=== PATIENT | male | born 1960 | race Caucasian/White ===

== ENCOUNTER 2016-11-23 10:18 | Observation (INO) | payer MEDICARE ==
[~2016-11-23] VITALS: Ht 193 cm; Wt 100.5 kg
--- NOTE | ~2016-11-23 | DS ---
PATIENT:SHELBY AYALA :58 MEDICAL RECORD: [id number] DISCHARGE SUMMARY ADMISSION DATE: 11/23/16 DISCHARGE DATE: DISCHARGE DIAGNOSES: 1. Unstable angina. 2. Coronary artery disease. 3. Percutaneous transluminal coronary angioplasty stent vein graft to the left anterior descending, diagonal and point lay ira left circumflex this admission. 4. Hypertension. 5. Hyperlipidemia. HOSPITAL COURSE: Mr. Ayala presents with unstable anginal symptomatology, found to have significant disease of the point lay ira left circumflex as well as the vein graft to the diagonal and underwent successful PTCA stent of above territories. He was discharged home with no change in his medications as he is already on aspirin and Effient will follow up with [facility] in 1 month. TRANSINT:[id number] Voice Confirmation ID: [id number] DOCUMENT ID: [id number] BETH BENSON MD CC: [id number] DICTATION DATE: 11/24/16929 MANAGER INTENSIVE CARE UNIT: 11/24/16 1147 ADM IN [facility] [address] [place] [address]
--- NOTE | ~2016-11-23 | HEMODYNAMI ---
PATIENT:SHELBY CARPIO MEDICAL RECORD: [id number] : 58 [facility] [id number] ADMISSION DATE: 11/23/16 Generatedon:11/23/201615:45 Patient name: SHELBY CARPIO Patient #: [id number] SSN: : 1960 Date of study: 11/23/2016 Page: Of Hemodynamic Procedure Report Patient Data Patient Demographics Procedure consent was obtained First Name: SHELBY Gender: Male Last Name: SHIRIN : 1960 [facility] Initial: R Age: 55 year(s) Patient #: [id number] Race: Unknown Additional ID: [id number] Contact details [address]: [address] [place] [address] ROAD State: [place] City: [place] Zip code: [address] Past Medical History Allergies: No known allergies Admission Admission Data Admission Date: 11/23/2016 Admission Time: 12:46 Room #: D2110 Lab Results Lab Result Date: 11/23/2016 Lab Result Time: 0:00 Biochemistry Name Units Result Min Max Creatinine mg/dl 1.1 --(--*-)-- 0.6 1.3 CBC Name Units Result Min Max Hemoglobin g/dl 15.6 --(--*-)-- 13.5 17.5 Procedure Procedure Types Cath Procedure Diagnostic Procedure LHC C w/Coronaries w/Grafts PCI Procedure SVG-BMS/LUIS MIGUEL Initial Miscellaneous Procedures Moderate Sedation up to 15 minutes Procedure Description Procedure Date Procedure Date: 11/23/2016 Procedure Start Time: 15:29 Procedure End Time: 15:44 Procedure Staff Name Function Earl Lorenzo MD Performing Physician Navid Kasper RN Nurse Rik Abraham RN Magnesium Mill Operator Lorenza Ko RT Scrub Andres Izquierdo RT Scrub Mendy Roberts RT Monitor Procedure Data Cath Procedure Fluoroscopy Diagnostic fluoroscopy Total fluoroscopy Time: 3.7 time: 3.7 min min Diagnostic fluoroscopy Total fluoroscopy dose: 617 dose: 617 mGy mGy Contrast Material Contrast Material Type Amount (ml) Isovue 300 65 Entry Location Entry Primary Successful Side Size Upsize Upsize Entry Closure Succes sful Closure Location (Fr) 1 (Fr) 2 (Fr) Remarks Device Remarks Femoral Left 5 Fr 6 Fr Exoseal artery Short Estimated blood loss: 10 ml Diagnostic catheters Device Type Used For End Catheter Placement Cordis 5Fr Pigtail LV Angiography Catheter (MP) Cordis 5Fr JL 4.0 Left Coronary Catheter (MP) Angiography Cordis 5Fr 3DRC Catheter Internal mammary (MP) arteriography Cordis 5Fr 3DRC Catheter Right Coronary (MP) Angiography Diagnostic Infinity 5Fr SVG Angiography AR 2 MOD catheter Procedure Complications No complications Procedure Medications Medication Administration Route Dosage 0.9% NaCl I.V. 100 ml/hr Oxygen NC 2 l/min Heparin Flush Bag added to field 2 bags (1000units/500ml NS) Lidocaine 2% added to field 20 Versed I.V. 2 mg Fentanyl I.V. 100 mcg Fentanyl I.V. 50 mcg Fentanyl I.V. 50 mcg Versed I.V. 1 mg Hemodynamics Rest HGB: 15.6 (g/dl) Heart Rate: 72 (bpm) Snapshots Pre Cath Intra NCS Post Cath Vital Signs Time Heart Resp SPO2 etCO2 [id number] NIBP (mmHg) Rhythm Pain Sedation Rate (ipm) (%) (mmHg) (mmHg) Status Level (bpm) 15:19:33 67 11 98 0 0 138/86(119) NSR 0 (11) 10(A) , No pain 15:24:14 67 18 95 0 0 132/88(120) NSR 0 (11) 10(A) , No pain 15:28:56 90 19 96 0 0 135/89(114) NSR 0 (11) 10(A) , No pain 15:33:41 71 10 96 0 0 148/77(112) NSR 0 (11) 10(A) , No pain 15:38:17 86 18 94 0 0 125/89(119) NSR 0 (11) 9(A) , No pain 15:42:58 77 15 91 0 0 136/80(100) NSR 0 (11) 10(A) , No pain Medications Time Medication Route Dose Verified Delivered Reason Notes Effe ctiveness by by 15:13:32 0.9% NaCl I.V. 100 Navid Jolly Per ml/hr Majo Abraham RN physician RN 15:13:51 Oxygen NC 2 Navid Navid Per l/min Majo Kasper physician RN RN 15:14:05 Heparin Flush added 2 Navid Navid used for Bag to bags Lorigan Lorigan procedure (1000units/500ml field RN RN NS) 15:14:18 Lidocaine 2% added 20ml Navid Navid for local to vial Lorigan Lorigan anesthetic field RN RN 15:28:08 Versed I.V. 2 mg Navid Navid for Lorigan Lorigan sedation RN RN 15:28:28 Fentanyl I.V. 100 Navid Navid for mcg Lorigan Lorigan sedation RN RN 15:30:48 Fentanyl I.V. 50 Navid Navid for mcg Lorigan Lorigan sedation RN RN 15:35:11 Fentanyl I.V. 50 Navid Navid for mcg Lorigan Lorigan sedation RN RN 15:39:04 Versed I.V. 1 mg Navid Navid for Lorigan Lorigan sedation RN grain unloader Log Time Note 14:55:27 Time tracking: Regular hours 14:55:30 Plan of Care:Hemodynamics will remain stable., Cardiac rhythm will remain stable., Comfort level will be maintained., Respiratory function will remain adequate., Patient/ family verbilizes understanding of procedure., Procedure tolerated without complication., Recovers from procedure without complications.. 14:56:26 Procedure type changed to Cath procedure, Diagnostic procedure, LHC, LH C w/Coronaries w/Grafts, PCI procedure, SVG-BMS/LUIS MIGUEL Initial, Miscellaneous Procedures, Moderate Sedation up to 15 minutes 14:56:54 Lab Result : Creatinine 1.1 mg/dl 14:56:54 Lab Result : Hemoglobin 15.6 g/dl 15:00:13 Rik Abraham RN sent for patient. Start room use. 15:09:39 Patient received from PCU to CCL 1 Alert and oriented. Tansferred to table in Supine position. 15:09:40 Warm blankets applied, and kiko hugger turned on for patient comfort. 15:09:40 Correct patient and procedure confirmed by team. 15:09:41 Signed procedure consent form obtained from patient. 15:09:42 ECG and BP/O2 sat monitors applied to patient. 15:13:32 0.9% NaCl 100 ml/hr I.V. was administered by Rik Abraham RN; Per physician; 15:13:51 Oxygen 2 l/min NC was administered by Navid Kasper RN; Per physician ; 15:14:05 Heparin Flush Bag (1000units/500ml NS) 2 bags added to field was administered by Navid Kasper RN; used for procedure; 15:14:18 Lidocaine 2% 20ml vial added to field was administered by Navid Kasper RN; for local anesthetic; 15:18:40 Vital chart was started 15:18:42 Rhythm: sinus rhythm 15:18:44 Full Disclosure recording started 15:18:45 - 15:18:51 H&P Date Dictated: 11/23/2016 Within 30 days and on chart.. 15:18:52 Pre-procedure instructions explained to patient. 15:18:53 Pre-op teaching completed and patient verbalized understanding. 15:18:55 Family in patients room. 15:18:58 Patient NPO since Midnight. 15:19:03 Patient allergic to No known allergies 15:19:04 Is the patient allergic to Iodine/contrast media? No. 15:19:06 Is patient on blood thinner?Yes 15:19:11 ACC The patient was administered the following blood thiners within the last 24 hours: ACCPlavix, ACCLovenox 15:19:14 Patient diabetic? No. 15:19:17 Previous problem with sedation/anesthesia? No ? 15:19:18 Snore? Yes 15:19:19 Sleep apnea? No 15:19:20 Deviated septum? No 15:19:21 Opens mouth fully? Yes 15:19:22 Sticks out tongue? Yes 15:19:24 Airway obstruction? No ? 15:19:26 Dentures? No ? 15:19:31 Pre procedure: right dorsailis pedis pulse 2+ Normal; easily identifiable; not easily obliterated 15:19:33 Patient pain scale 0/10 ?. 15:19:41 IV patent on arrival in right hand with 0.9% NaCl at [facility]. 15:19:45 Lab results completed and on chart. 15:19:51 Right groin area was prepped with chlora-prep and draped in sterile fashion 15:19:52 Alarms reviewed by R. N. 15:19:52 Sharps counted by scrub and verified by R.N. 15:19:56 Use device set Femoral Dx 15:19:57 Acist Syringe opened to sterile field. 15:19:57 Bag Decanter opened to sterile field. 15:19:57 Medline Cath Pack opened to sterile field. 15:19:58 Terumo 5Fr Barneveld Sheath opened to sterile field. 15:19:58 St Reji 260cm J .035 wire opened to sterile field. 15:20:00 Acist Hand Control opened to sterile field. 15:20:00 Acist Manifold opened to sterile field. 15:20:00 Diagnostic Infinity 5Fr Multipack catheter opened to sterile field. 15:20:01 Tegaderm 4 x 4 opened to sterile field. 15:24:46 Zero performed for pressure channel P1 15:24:54 Baseline sample Acquired. 15:24:57 Physician paged 15:27:12 Final Timeout: patient, procedure, and site verified with staff and physician. All members of the team are in agreement. 15:27:14 Right groin site verified by team. 15:27:16 Physical assessment completed. ASA score P 2 - A patient with mild systemic disease as per Earl Lorenzo MD. 15::19 Sedation plan: IV Moderate Sedation Versed, Fentanyl 15:28:08 Versed 2 mg I.V. was administered by Navid Kasper RN; for sedation; 15::28 Fentanyl 100 mcg I.V. was administered by Navid Kasper RN; for sedation; 15:28:55 Procedure started. 15:29:33 Local anesthetic to right femoral artery with Lidocaine 2% by Earl Lorenzo MD.INITIAL ACCESS ONLY 15:30:16 A 5 Fr sheath was inserted into the Left Femoral artery 15:30:48 Fentanyl 50 mcg I.V. was administered by Navid Kasper RN; for sedation; 15:31:31 A Cordis 5Fr Pigtail Catheter (MP) was advanced over the wire and used for LV Angiography. 15:31:33 LV gram done using WARD 15:31:37 EF : 50 % 15:31:40 Injector settings: Ml/sec: 10, Volume: 20, 15:31:42 Catheter removed. 15:31:46 A Cordis 5Fr JL 4.0 Catheter (MP) was advanced over the wire and used for Left Coronary Angiography. 15:32:42 Catheter removed. 15:33:22 A Cordis 5Fr 3DRC Catheter (MP) was advanced over the wire and used for Internal mammary arteriography.To LAD 15:34:05 A Cordis 5Fr 3DRC Catheter (MP) was advanced over the wire and used for Right Coronary Angiography. 15:34:25 Catheter removed. 15:35:08 A Diagnostic Infinity 5Fr AR 2 MOD catheter was advanced over the wire and used for SVG Angiography.To Diag 15:35:11 Fentanyl 50 mcg I.V. was administered by Navid Kasper RN; for sedation; 15:35:16 Sheath upsized to a 6 Fr Short. 15:35:50 Catheter removed. 15:35:56 Medtronic Launcher 6Fr AR 2.0 SH guide catheter opened to sterile field . 15:36:39 6 Fr AR 2.0 SH guide catheter was inserted over the wire 15:36:59 Rios Whisper J 300cm 0.014 guide wire opened to sterile field. 15:37:00 Terumo 6Fr Barneveld Sheath opened to sterile field. 15:37:40 Whisper wire advanced. 15:39:04 Versed 1 mg I.V. was administered by Navid Kasper RN; for sedation; 15:39:27 Inflation Number: 1 A Lowell OTW 3.5 x 15 stent was prepped and advanced across the Aorta Left -> 1st Diag. The stent was deployed at 21 MARGIE for 0:14 (min:sec). 15:40:04 Stent catheter was removed intact over wire. 15:40:04 Wire removed. 15:40:05 Guide catheter removed. 15:40:46 Sheath removed intact; hemostasis achieved with Exoseal to the Left Femoral artery. 15:40:48 Procedure ended.(Physican Out) 15:41:00 Cordis 6Fr Exoseal opened to sterile field. 15:41:05 Fluoroscopy time 03.70 minutes. 15:41:17 Fluoroscopy dose: 617 mGy 15:41:17 Flurop Dose total: 617 15:41:21 Contrast amount:Isovue 300 65ml. 15:41:22 Sharps counted by scrub and verified by R.N. 15:41:23 Insertion/operative site no bleeding no hematoma. 15:41:26 Post-op/insertion site Right Femoral artery dressed using a 4 x 4 and Tegaderm. 15:41:29 Post right femoral artery:stable, clean and dry 15:41:30 Post Procedure Pulses reassessed and unchanged 15:41:33 Post-procedure physical assessment completed. ASA score P 2 - A patient with mild systemic disease as per Earl Lorenzo MD. 15:41:35 Post procedure rhythm: unchanged. 15:41:37 Estimated blood loss: 10 ml 15:41:39 Post procedure instruction explained to patient.Patient verbalizes understanding. 15:41:39 Patient needs reinforcement of post procedure teaching. 15:41:45 Procedure Complication : No complications 15:41:47 See physician's report for complete and final results. 15:43:22 Procedure and supply charges have been captured, reviewed, submitted an d are correct. 15:44:44 Vital chart was stopped 15:44:47 Report given to PCU. 15:44:51 Patient transfered to PCU with Bed. 15:44:54 Procedure ended. 15:44:54 Full Disclosure recording stopped 15:45:02 End room use (Document Last) Intervention Summary Intervention Notes Time ActionType Lesion and Equipment Action# Pressure Duration Attributes Used 15:39:27 Place stent Aorta Left Lowell OTW 1 21 00:15 -> 1st Diag 3.5 x 15 stent Device Usage Item Name Manufacture Quantity Catalog Hospital Part Current Minimal Lot# / Number Charge Number Stock Stock Serial# Code Acist Acist 1 [id number] 832633 651766 20 Syringe Medical Systems Inc Bag Microtek 1 2002S 793376 89100 388857 5 Dec[employer]Aly[employer] Inc[employer] Medline Cardinal 1 [id number] 681442 00592 602981 5 Lost Property Heaven Terumo 5Fr Terumo 1 [id number] 609375 007698 538504 [address] Reji 1 435708 494971 723939 520665 30 260cm J .035 wire Acist Hand Acist 1 48677 536782 058138 811730 5 Jybe Systems Inc Acist Acist 1 07517 202404 891692 099297 5 [facility] Medical Systems Inc Diagnostic Cardinal 1 [id number] 456559 16794 294122 30 Infinity Health 5Fr Multipack catheter Tegaderm 4 3M 1 1626W 695985 231486 028745 5 x 4 Cordis 5Fr Cardinal 1 281335 5 Pigtail Health Catheter (MP) Cordis 5Fr Cardinal 1 929548 5 JL 4.0 Health Catheter (MP) Cordis 5Fr Cardinal 1 658985 5 3DRC Health Catheter (MP) Diagnostic Cardinal 1 [id number] 334187 850564 875843 20 Infinity Health 5Fr AR 2 MOD catheter Medtronic Medtronic 1 [id number] 937014 56314 685833 1 Launcher 6Fr AR 2.0 SH guide catheter Rios Rios 1 [id number] 801664 217497 185728 5 [facility] J Vascular 300cm 0.014 guide wire Terumo 6Fr Terumo 1 WFL084 426331 664450 769461 40 Barneveld Sheath [place] OTW Medtronic 1 [id number] 494652 2194051 896422 5 [id number] 3.5 x 15 stent Cordis 6Fr Cardinal 1 EX600 108187 023215 941786 10 [facility] Health Signature Audit [place] Stage Time Signature Unsigned Intra-Procedure 11/23/2016 Mendy 3:45:18 PM Counts RT(R) Signatures Monitor : Mendy Signature : Counts RT Date : Time : [facility] [address] [facility] [place] [address]
--- NOTE | ~2016-11-23 | OP ---
PATIENT NAME: SHELBY CARPIO MEDICAL RECORD: [id number] :58 LOCATION:D.M2 D.0 ADMISSION DATE:11/23/16 SURGEON: BETH BENSON MD DATE OF OPERATION: 11/24/2016 PROCEDURES: 1. PTCA stent left circumflex. 2. Selective coronary angiography. INDICATION: Angina and coronary artery disease. PROCEDURE IN DETAIL: After informed consent was obtained and after detailed explanation of risks, benefits as well as alternative to therapies, the patient elected to proceed with angiogram and angioplasty. The left femoral area was prepped and draped in normal sterile fashion. Left femoral artery was cannulated via modified Seldinger technique with placement of 6-Tajik sheath. All catheters exchanged through this sheath. FINDINGS: The left circumflex has 80% and 90% stenosis. This was addressed with a 2.5 x 26 and a 2.25 x 12 both Piero stents. Result was 0% residual stenosis. OVERALL IMPRESSION: Successful percutaneous transluminal coronary angioplasty stent of the left circumflex going from 90% initial stenosis to 0% residual stenosis. TRANSINT:[id number] Voice Confirmation ID: [id number] DOCUMENT ID: [id number] BETH BENSON MD CC: [id number] DICTATION DATE: 11/24/1631 STOCK ROLLER: 11/24/16 1104 ADM IN [facility] [address] [place] [address]
--- NOTE | ~2016-11-23 | HEMODYNAMI ---
PATIENT:SHELBY CARPIO MEDICAL RECORD: [id number] : 58 LOCATION:[address] [id number] ADMISSION DATE: 11/23/16 Generatedon:11/24/20169:34 Patient name: SHELBY CARPIO Patient #: [id number] SSN: : 1960 Date of study: 11/24/2016 Page: Of Hemodynamic Procedure Report Patient Data Patient Demographics Procedure consent was obtained First Name: SHELBY Gender: Male Last Name: SHIRIN : 1960 [facility] Initial: R Age: 55 year(s) Patient #: [id number] Race: Unknown Additional ID: [id number] Contact details [address]: [address] [place] [address] ROAD State: [place] City: [place] Zip code: [address] Past Medical History Allergies: No known allergies Admission Admission Data Admission Date: 11/23/2016 Admission Time: 12:46 Room #: D.2110 Lab Results Lab Result Date: 11/23/2016 Lab Result Time: 0:00 Biochemistry Name Units Result Min Max Creatinine mg/dl 1.1 --(--*-)-- 0.6 1.3 CBC Name Units Result Min Max Hemoglobin g/dl 15.6 --(--*-)-- 13.5 17.5 Procedure Procedure Types Cath Procedure PCI Procedure Coronary Stent Initial Miscellaneous Procedures Moderate Sedation up to 15 minutes Procedure Description Procedure Date Procedure Date: 11/24/2016 Procedure Start Time: 9:18 Procedure End Time: 9:31 Procedure Staff Name Function Earl Lorenzo MD Performing Physician Lorenza Ko RT Scrub Andres Izquierdo RT Scrub Navid Kasper RN Nurse Rik Abraham RN Is Project Manager Lalita De La Cruz RT Monitor Procedure Data Cath Procedure Fluoroscopy Diagnostic fluoroscopy Total fluoroscopy Time: 3.4 time: 3.4 min min Diagnostic fluoroscopy Total fluoroscopy dose: 544 dose: 544 mGy mGy Contrast Material Contrast Material Type Amount (ml) Isovue 300 51 Entry Location Entry Primary Successful Side Size Upsize Upsize Entry Closure Succes sful Closure Location (Fr) 1 (Fr) 2 (Fr) Remarks Device Remarks Femoral Left 6 Fr Exoseal artery Short Estimated blood loss: 10 ml Procedure Complications No complications Procedure Medications Medication Administration Route Dosage 0.9% NaCl I.V. 100 ml/hr Oxygen NC 2 l/min Heparin Flush Bag added to field 2 bags (1000units/500ml NS) Lidocaine 2% added to field 20 Versed I.V. 1 mg Fentanyl I.V. 50 mcg Heparin Bolus I.V. 4000 units Fentanyl I.V. 50 mcg Versed I.V. 1 mg Hemodynamics Rest HGB: 15.6 (g/dl) Heart Rate: 64 (bpm) Snapshots Pre Cath Intra NCS Post Cath Vital Signs Time Heart Resp SPO2 etCO2 [id number] NIBP (mmHg) Rhythm Pain Sedation Rate (ipm) (%) (mmHg) (mmHg) Status Level (bpm) 9:07:36 67 18 97 0 0 121/86(101) NSR 0 (11) 10(A) , No pain 9:12:16 69 18 93 0 0 123/80(102) NSR 0 (11) 10(A) , No pain 9:16:59 75 18 94 0 0 136/77(89) NSR 0 (11) 9(A) , No pain 9:21:42 77 11 95 0 0 114/76(92) NSR 0 (11) 9(A) , No pain 9:26:20 80 15 95 0 0 108/83(95) NSR 0 (11) 9(A) , No pain 9:30:59 76 12 95 0 0 123/80(106) NSR 0 (11) 9(A) , No pain Medications Time Medication Route Dose Verified Delivered Reason Notes Effectiveness by by 9:04:04 0.9% NaCl I.V. 100 Navid Navid Per physician ml/hr Majo Kasper RN RN 9:04:24 Oxygen NC 2 Navid Navid Per physician l/min Majo Kasper RN RN 9:04:58 Heparin Flush added 2 Navid Navid used for Bag to bags Majo Kasper procedure (1000units/500ml field GRAFF RN NS) 9:05:29 Lidocaine 2% added 20ml Navid Navid for local to vial Lorigan Lorigan anesthetic field RN RN 9:11:09 Versed I.V. 1 mg Navid Navid for sedation Majo Kasper RN RN 9:11:21 Fentanyl I.V. 50 Navid Navid for sedation mcg Majo Kasper RN RN 9:20:06 Heparin Bolus I.V. 4000 Navid Navid for units Majo Kasper anticoagulation RN RN 9:20:14 Fentanyl I.V. 50 Navid Navid for sedation mcg Majo Kasper RN RN 9:28:36 Versed I.V. 1 mg Navid Navid for sedation Majo Kasper RN executive creative director Log Time Note 8:56:52 Rik Abraham RN sent for patient. Start room use. 8:56:53 Time tracking: Regular hours 8:56:57 Plan of Care:Hemodynamics will remain stable., Cardiac rhythm will remain stable., Comfort level will be maintained., Respiratory function will remain adequate., Patient/ family verbilizes understanding of procedure., Procedure tolerated without complication., Recovers from procedure without complications.. 9:01:01 Patient received from Med II to CCL 1 Alert and oriented. Tansferred to table in Supine position. 9:01:08 Warm blankets applied, and kiko hugger turned on for patient comfort. 9:01:09 Correct patient and procedure confirmed by team. 9:01:12 Signed procedure consent form obtained from patient. 9:01:14 ECG and BP/O2 sat monitors applied to patient. 9:04:04 0.9% NaCl 100 ml/hr I.V. was administered by Navid aKsper RN; Per physician; 9:04:24 Oxygen 2 l/min NC was administered by Navid Kasper RN; Per physician; 9:04:58 Heparin Flush Bag (1000units/500ml NS) 2 bags added to field was administered by Navid Kasper RN; used for procedure; 9:05:29 Lidocaine 2% 20ml vial added to field was administered by Navid Kasper RN; for local anesthetic; 9:06:42 Vital chart was started 9:07:30 Baseline sample Acquired. 9:07:40 Rhythm: sinus rhythm 9:07:42 Full Disclosure recording started 9:07:50 H&P Date Dictated: 11/23/2016 Within 30 days and on chart.. 9:07:53 Pre-procedure instructions explained to patient. 9:07:55 Family in patients room. 9:07:59 Patient NPO since Midnight. 9:08:09 Patient allergic to No known allergies 9:08:13 Is the patient allergic to Iodine/contrast media? No. 9::21 Is patient on blood thinner?Yes 9::25 ACC The patient was administered the following blood thiners within the last 24 hours: ACCEffient 9:09:27 Patient diabetic? No. 9:09:32 Snore? No 9:09:33 Sleep apnea? No 9:09:38 Dentures? No ? 9:09:43 Patient pain scale 0/10 ?. 9:09:50 IV patent on arrival in right hand with 0.9% NaCl at [facility]. 9:10:04 Lab results completed and on chart. 9:10:09 Left groin area was prepped with chlora-prep and draped in sterile fashion 9:10:10 Alarms reviewed by R. N. 9:10:11 Sharps counted by scrub and verified by R.N. 9:10:13 Physician arrived 9::13 --------ALL STOP TIME OUT------ 9:10:14 Final Timeout: patient, procedure, and site verified with staff and physician. All members of the team are in agreement. 9:10:18 Left groin site verified by team. 9:10:25 Sedation plan: IV Moderate Sedation Versed, Fentanyl 9:11:09 Versed 1 mg I.V. was administered by Navid Kasper RN; for sedation; 9::21 Fentanyl 50 mcg I.V. was administered by Navid Kasper RN; for sedation; 9:13:00 Use device set Femoral PCI 9:13:03 Acist Syringe opened to sterile field. 9:13:04 Acist Hand Control opened to sterile field. 9:13:04 Bag Decanter opened to sterile field. 9:13:05 Medline Cath Pack opened to sterile field. 9:13:05 Terumo 6Fr [place]view Sheath opened to sterile field. 9:13:06 St Reji 260cm J .035 wire opened to sterile field. 9:13:06 Merit BasixCompak Inflation Kit opened to sterile field. 9:13:07 Acist Manifold opened to sterile field. 9:13:07 Tegaderm 4 x 4 opened to sterile field. 9:13:28 Rios Whisper J 300cm 0.014 guide wire opened to sterile field. 9::29 Cordis 6FR XBLAD 4.0 guide catheter opened to sterile field. 9:18:00 Procedure started. 9:18:04 Local anesthetic to left femerol artery with Lidocaine 2% by Earl Lorenzo MD.INITIAL ACCESS ONLY 9:19: A 6 Fr Short sheath was inserted into the Left Femoral artery 9:19:25 6 Fr XBLAD 4 guide catheter was inserted over the wire 9:: Whisper wire advanced. 9:20:06 Heparin Bolus 4000 units I.V. was administered by Navid Kasper RN; for anticoagulation; 9::14 Fentanyl 50 mcg I.V. was administered by Navid Kasper RN; for sedation; 9:22:47 Wire advanced across lesion. 9:23:49 Inflation Number: 1 A Piero OTW 2.5 x 26 stent was prepped and advanced across the Prox CX. The stent was deployed at 13 MARGIE for 0:10 (min:sec). 9:25:16 Stent catheter was removed intact over wire. 9::25 Inflation Number: 1 A Piero OTW 2.25 x 12 stent was prepped and advanced across the Mid CX. The stent was deployed at 15 MARGIE for 0:10 (min:sec). 9:27:16 Stent catheter was removed intact over wire. 9:27:18 Wire removed. 9:27:31 Cordis 6Fr Exoseal opened to sterile field. 9:27:37 Guide catheter removed. 9::52 Sheath removed intact; hemostasis achieved with Exoseal to the Left Femoral artery. 9::56 Procedure ended.(Physican Out) 9:28:36 Versed 1 mg I.V. was administered by Navid Kasper RN; for sedation; ::56 Fluoroscopy time 03.40 minutes. :: Fluoroscopy dose: 544 mGy 9:: Flurop Dose total: 544 9:29:06 Contrast amount:Isovue 300 51ml. 9:29:08 Sharps counted by scrub and verified by R.N. 9:29:11 Insertion/operative site no bleeding no hematoma. 9:29:15 Post-op/insertion site Left Femoral artery dressed using a 4 x 4 and Tegaderm. 9:29:19 Post Procedure Pulses reassessed and unchanged 9:29:33 Post-procedure physical assessment completed. ASA score P 3 - A patient with severe systemic disease as per Earl Lorenzo MD. 9:29:51 Post procedure rhythm: unchanged. 9:29:58 Estimated blood loss: 10 ml 9:30:01 Post procedure instruction explained to patient.Patient verbalizes understanding. 9:30:16 Procedure type changed to Cath procedure, PCI procedure, Coronary Stent Initial, Miscellaneous Procedures, Moderate Sedation up to 15 minutes 9:30:18 Procedure and supply charges have been captured, reviewed, submitted and are correct. 9:30:48 Procedure Complication : No complications 9:30:51 Vital chart was stopped 9:30:52 See physician's report for complete and final results. 9:31:00 Report given to Med II. 9:31:09 Patient transfered to [facility] II with Bed. 9:31:12 Procedure ended. 9:31:12 Full Disclosure recording stopped 9:31:20 End room use (Document Last) Intervention Summary Intervention Notes Time ActionType Lesion and Equipment Action# Pressure Duration Attributes Used 9:23:49 Place stent Prox CX Levant OTW 1 13 00:10 2.5 x 26 stent 9:26:25 Place stent Mid CX Piero OTW 1 15 00:10 2.25 x 12 stent Device Usage Item Name Manufacture Quantity Catalog Hospital Part Current Minimal Lot# / Number Charge Number Stock Stock Serial# Code Acist Acist 1 [id number] 304527 984179 [id number] 20 Syringe Medical Systems Inc Acist Hand Acist 1 88635 362097 623105 646413 5 Control Medical Systems Inc Bag Microtek 1 2001S 860905 47065 993932 5 Edserv [employer] Inc. Medline Cardinal 1 [id number] 243465 26462 497869 5 [employer] Terumo 6Fr Terumo 1 [id number] 896970 497790 605370 [address] Reji 1 641418 856235 704427 000915 30 260cm J .035 wire Merit Merit 1 [id number] 195992 925436 161897 15 BasixCyzone Medical Inflation Kit Acist Acist 1 17740 118540 170031 695305 5 Manifold Medical Systems Inc Tegaderm 4 3M 1 1626W 452775 196730 688395 5 x 4 Rios Rios 1 [id number] 264819 778222 158237 5 Whisper J Vascular 300cm 0.014 guide wire Cordis 6FR Cardinal 1 [id number] 295026 779262 715974 3 XBLAD 4.0 Health guide catheter Piero OTW Medtronic 1 [id number] 844570 40416 411101 5 [id number] 2.5 x 26 stent Piero OTW Medtronic 1 [id number] 480482 78824 518519 5 [id number] 2.25 x 12 stent Cordis 6Fr Cardinal 1 EX600 117648 930819 677447 10 [facility] Signature Audit [place] Stage Time Signature Unsigned Intra-Procedure 11/24/2016 Lalita De La Cruz 9:34:42 AM RT(R) Signatures Monitor : Lalita De La Cruz Signature : RT Date : Time : [place] [id number] [facility] [place] [id number]
[2016-11-23 10:48] LABS: BASOPHILS 0.4 % (0-2); EOSINOPHILS 3.6 % (0-7); HEMATOCRIT 45.6 % (42.0-54.0); HEMOGLOBIN 15.6 g/dL (13.5-17.5); IMMATURE GRANULOCYTES 0.3 % (0-5); LYMPHOCYTES 15.5 % (15-50); MCH 29.3 pg (26.0-34.0); MCHC 34.2 g/dL (31.0-37.0); MCV 85.7 fL (80.0-100.0); MEAN PLATELET VOLUME 11.1 fL (7.4-10.4); MONOCYTES 7.3 % (2-11); NEUTROPHILS 72.9 % (40-80); PLATELET COUNT 205 10x3/uL (130-400); RBC 5.32 10x6/uL (4.20-6.10); RDW 14.6 % (11.5-14.5); WBC 6.7 10x3/uL (4.8-10.8)
[2016-11-23 11:07] LABS: ALBUMIN 3.6 g/dL (3.4-5.0); ALKALINE PHOSPHATASE 118 U/L (46-116); ALT (SGPT) 59 U/L (10-68); CALC OSMOLALITY 274 mosm/kg (275-300); CALCIUM 8.8 mg/dL (8.5-10.1); CARBON DIOXIDE 25.7 mmol/L (21.0-32.0); CHLORIDE - SERUM 103 mmol/L (98-107); CREATININE - SERUM 1.1 mg/dL (0.6-1.3); GLUCOSE 160 mg/dL (74-106); POTASSIUM - SERUM 3.8 mmol/L (3.5-5.1); PROTEIN - SERUM 6.9 g/dL (6.4-8.2); SODIUM 136 mmol/L (136-145); UREA NITROGEN 12 mg/dL (7-18); eGFR NON AFRICAN AMERICAN 73 mL/min (90-120)
[2016-11-23 11:19] LABS: CHOL - HDL RATIO 7.5 ratio (2.3-4.9); CHOLESTEROL, TOTAL 262 mg/dL (0-200); CKMB 0.8 U/L (0.0-3.6); CREATINE KINASE 62 UL (21-232); HDL CHOLESTEROL 35 mg/dL (32-96); TROPONIN-I < 0.017 ng/mL (0.000-0.060)
[2016-11-23 11:20] LABS: TRIGLYCERIDE 555 mg/dL (30-200)
--- NOTE | 2016-11-23 14:00 | NUR ---
PATIENT TO ROOM FROM ER, PATIENT IS ALERT AND ORIENTED AT THIS TIME. R WRIST IV SL AT THIS TIME, WILL HANG NS ORDERED. SR ON MONITOR RATE OF 69, WITH PVCS NOTED. PATIENT ON 1 L/MIN VIA NC OF O2 WITH O2 SAT 98%. PATIENT C/O OF CHEST PAIN 09/14. MORPHINE NOT DUE YET, WILL GIVE WHEN DUE. PATIENT DENIES ANY OTHER NEEDS AT THIS TIME. WILL CONT TO MONITOR. CPOC
[2016-11-23] MEDS ORDERED: COREG25 MG PO (14:13)
[2016-11-23] MEDS ORDERED: EFFIENT10 MG PO (14:13)
[2016-11-23] MEDS ORDERED: RANEXA1000 MG PO (14:14)
[2016-11-23] MEDS ORDERED: AMBIEN10 MG PO (14:14)
[2016-11-23] MEDS ORDERED: BAYER CHEWABLE81 MG PO (14:14)
[2016-11-23] MEDS ORDERED: XANAX0.25 MG PO (14:14)
[2016-11-23] MEDS ORDERED: TRICOR145 MG PO (14:15)
[2016-11-23 14:32] VITALS: BMI 26.8
--- NOTE | 2016-11-23 15:12 | NUR ---
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 CPOC
--- NOTE | 2016-11-23 16:00 | NUR ---
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 VS STABLE. L GROIN SOFT, NO SIGNS OF HEMATOMA. CPOC
--- NOTE | 2016-11-23 17:34 | NUR ---
VS STILL STABLE. SITE WNL. NO COMPLAINTS. CPOC
--- NOTE | 2016-11-23 18:14 | NUR ---
MORPHINE GIVEN FOR PAIN 7/10 IN CHEST. WILL MONITOR
[2016-11-23 19:00] VITALS: BP 111/72
--- NOTE | 2016-11-23 19:21 | NUR ---
PT C/O PAIN. PT HAS TEARS IN EYES AND IS EXPRESSING CONCERN THAT PAIN USUALLY IS HANDLED WITH MORPINE. TOLD PT WE WILL WORK ON PAIN MANAGEMENT TONIGHT AND HOPEFULLY KEEP PAIN UNDER A 3/10. PT HAS A FAMILY MEMBER AT BEDSIDE. PT IV IS INFUSING AT 100ML/HR TO RIGHT WRIST. PT IS STILL LAYING FLAT AND VERBALIZES UNDERSTANDING/ DENIES ANY QUESTIONS ABOUT STAYING ON BACK AND LAYING FLAT UNTIL 1999. PT DENIES ANY NEEDS. NO S/S OF DISTRESS. WILL CPOC
--- NOTE | 2016-11-23 22:46 | NUR ---
PT C/O PAIN THAT IS IN CHEST AND LEFT SHOULDER. STATES HIS HEART IS FLIPPING AND FLUTTERING. PT WAS C/O 8/10 PAIN AT 2100. MORPHINE GIVEN. PAIN NOW A 5/10. PT STATES HE IS FEELING BETTER AND IS NOW GOING TO TRY AND GO TO BED. PT VERBALIZES UNDERSTANDING OF NPO AFTER MIDNIGHT. PT DENIES ANY NEEDS. NO S/S OF DISTRESS. WILL CPOC
[2016-11-24] VITALS: BP 120/74
--- NOTE | 2016-11-24 00:02 | NUR ---
PT IS NOW AT 05/15. LAYING ON LEFT SIDE. DENIES ANY NEEDS. NO S/S OF DISTRESS. WILL CPOC
[2016-11-24 04:00] VITALS: BP 127/70
--- NOTE | 2016-11-24 07:50 | NUR ---
AM ROUNDING- RECIEVED REPORT FROM HAND CANDY CUTTER NURSE WANDA. PT IS CURRENLTY LAYING IN BED RIGHT SIDE WITH EYES OPEN RESTING. PT STATES HIS PAIN IS TOLERABLE AT THIS TIME. NPO ORDERED. ON ROOM AIR. ON MONITOR SHOWING SR, HR 81. IV SEEN TO RIGHT WRIST WITH NS RUNNING AT KVO (20CC). NO NEED AT THIS CURRENT TIME. CONSENTS FOR PROCEDURE ARE IN CHART. WILL CONTINUE TO MONITOR AND CONTINUE WITH PLAN OF CARE.
[2016-11-24 08:00] VITALS: BP 116/72
[2016-11-24 09:07] VITALS: Ht 193 cm; Wt 100.5 kg
--- NOTE | 2016-11-24 09:43 | HP ---
PATIENT: SHELBY AYALA MEDICAL RECORD: [id number] ACCOUNT: [id number] LOCATION:[address] : 58 ADMISSION DATE: 11/23/16 HISTORY AND PHYSICAL EXAMINATION ADMITTING DIAGNOSES: 1. Unstable angina. 2. Coronary artery disease. 3. Status post coronary artery bypass graft surgery. 4. Status post multivessel percutaneous transluminal coronary angioplasty stent. 5. Hypertension. 6. Hyperlipidemia. HISTORY OF PRESENT ILLNESS: Mr. Ayala presents with unstable anginal chest discomfort. He has an extensive cardiac history in [place], [place] where he was previously living; bypass surgery in 2005, myocardial infarction in 2010; fourteen stents since. His chest pain is unstable and just like his previous angina. PHYSICAL EXAMINATION: GENERAL APPEARANCE: Well-nourished, well-developed, appears stated age. Level of distress, comfortable. PSYCHIATRIC: Mental status, alert, normal affect. Orientation, oriented to time, place and person. EYES: Lids and conjunctiva, noninjected. No discharge, no pallor. ENT: Lips, teeth, gums, normal dentition. Oropharynx, no cyanosis, no pallor. NECK: Carotid arteries, bilateral normal upstroke, no bruits, no thrills. JUGULAR VEINS: No jugular venous pressure or distention. CERVICAL LYMPH NODES: Nontender, nonenlarged. THYROID: Not enlarged. Nontender. No nodules. LUNGS: Respiratory effort, unlabored. CHEST: Normal curvature. No thoracic deformity. No chest wall tenderness. Percussion, resonant. Auscultation, clear. No wheezes, no rales, no rhonchi. CARDIOVASCULAR: Precordial exam, nondisplaced. No heaves or pericardial thrills. Rate and rhythm, regular. Heart sounds, normal S1, normal S2. No S3, no gallop, no rub. Systolic murmur, not heard. Diastolic murmur, not heard. EXTREMITIES: No cyanosis, no edema. Peripheral pulses, full and equal in all extremities, except as noted. No bruits appreciated. ABDOMEN: Soft, nondistended. Normal aorta. No bruit. Nontender. No masses. Liver, nontender, no hepatomegaly. Spleen, nontender, no splenomegaly. MUSCULOSKELETAL: No joint tenderness. No joint swelling. No erythema. NEUROLOGICAL: Normal gait, normal strength, normal tone. SKIN: Warm and dry. REVIEW OF SYSTEMS: The patient reports easy bruising but reports no swollen glands. The patient reports no fever, no night sweats, no significant weight gain, no significant weight loss. No significant exercise tolerance. The patient reports no dry eyes, no irritation, no vision change. Patient reports no difficulty hearing and no ear pain. Patient reports no frequent nose bleeds or nose and sinus problems. Patient reports on arm pain on exertion. No shortness of breath while lying down. No history of heart murmur. Patient reports no cough, no wheezing or coughing up blood. Patient reports no abdominal pain, no vomiting. Normal appetite. No diarrhea and not vomiting blood. No nausea and no constipation. Patient reports no incontinence. No HISTORY AND PHYSICAL [id number] SHELBY AYALA Keisha difficulty urinating. No hematuria. No increased frequency. Patient reports no muscle aches. No weakness, no arthralgias, no back pain. No swelling of the extremities. Patient reports no abnormal mole, no jaundice, no rashes. Reports no loss of consciousness. No weakness and no numbness. No seizures, dizziness, or headaches. The patient reports no depression, no sleep disturbance, feeling safe in a relationship and no alcohol abuse. Patient reports on fatigue. Reports no runny nose or sinus pressure. No itching, no hives, and no frequent sneezing. OVERALL IMPRESSION: Unstable angina. We will proceed with coronary angiography. Further care depends upon findings of the angiography. TRANSINT:[id number] Voice Confirmation ID: [id number] DOCUMENT ID: [id number] BETH BENSON MD at 0943 CC: [id number] DICTATION DATE: 11/23/16 1303 MATERIAL HANDLING TECHNICIAN: 11/23/16 1321 ADM IN [facility] [address] [place] [address]
--- NOTE | 2016-11-24 09:44 | OP ---
PATIENT NAME: SHELBY CARPIO MEDICAL RECORD: [id number] :58 LOCATION:D.M2 D.0 ADMISSION DATE:11/23/16 SURGEON: BETH BENSON MD DATE OF OPERATION: 11/23/2016 PROCEDURES: 1. PTCA and stent, vein graft to LAD diagonal. 2. Left heart catheterization. 3. Selective coronary angiography. 4. Left ventriculogram. 5. Vein graft angiography. 6. ROCKWELL angiography. INDICATION: Angina and coronary artery disease. PROCEDURE IN DETAIL: After informed consent was obtained and after detailed explanation of risks and benefits as well as alternative therapies, the patient elected to proceed with angiogram and angioplasty. The left femoral area was prepped and draped in normal sterile fashion. Left femoral artery was cannulated via modified Seldinger technique with placement of 6-Lao sheath. All catheters were exchanged through the sheath. FINDINGS: The left ventriculogram was performed in standard 30-degree WARD view, reveals preserved cardiac wall motion. Ejection fraction 50%. SELECTIVE CORONARY ANGIOGRAPHY: 1. Left main is with no significant angiographic disease. 2. Left anterior descending is totally occluded. 3. ROCKWELL to the LAD is widely patent. 4. Vein graft to the LAD diagonal is patent; however, there is 80% in-stent restenosis at the ostium of this vein graft. 5. The left circumflex is not grafted. There is 80% stenosis to 90% stenosis times 2. 6. The right coronary has mild irregularities, but no flow-limiting stenosis. PTCA AND STENT OF THE VEIN GRAFT TO THE LAD DIAGONAL: The stent used was 3.5 x 15-mm Piero, taken to 21 atmospheres. Result was 0% residual stenosis. OVERALL IMPRESSION: Successful PTCA and stent of the vein graft to the LAD diagonal, going from 80+ percent initial stenosis to 0% residual. PLAN: PTCA and stent of the eek circumflex in the near future. TRANSINT:[id number] Voice Confirmation ID: [id number] DOCUMENT ID: [id number] BETH BENSON MD at 0944 CC: [id number] DICTATION DATE: 11/23/16 1546 MAKE UP WORKER: 11/23/161941 ADM IN [place] [id number] [place] [address]
--- NOTE | 2016-11-24 09:47 | NUR ---
PT BACK FROM WIRE PHOTO OPERATOR NEWS. PT APPEARS TO BE SLIGHTLY LETHARGIC. PT IS AWARE TO LIE FLAT FOR 4 HOURS. IV FLUIDS STARTED ORDERED. WILL START VITAL SIGNS PER PROTOCOL. CDI TO LEFT GROIN AREA. WILL CONTINUE TO MONITOR.
--- NOTE | 2016-11-24 11:33 | NUR ---
RAISED PTS HOB TO 10 DEGREES. DRESSING TO LEFT GROIN IS CLEAN, DRY, AND INTACT WITH NO BLEEDING SEEN. WILL CONTINUE TO MONITOR.
[2016-11-24 11:56] VITALS: BP 98/77
--- NOTE | 2016-11-24 13:39 | NUR ---
WENT TO EXPLAIN D/C PAPERWORK TO PT AND PT STATES HIS WON'T BE ABLE TO COME AND GET HIM UNITL 5PM. RELAYED THIS INFORMATION TO JADEN, CHARGE NURSE.
[2016-11-24 16:00] VITALS: BP 110/61
--- NOTE | 2016-11-24 17:30 | NUR ---
D/C INSTRUCTIONS EXPLAINED TO PT. D/C PAPERWORK SIGNED BY PT AND PLACED IN CHART. IV TO RIGHT WRIST REMOVED WITH CATH TIP INTACT. HEART MONITOR REMOVED AND RETURNED TO [facility] IN TELEMETRY. PT D/C VIA WHEELCHAIR.
== END 2016-11-24 17:36 | disposition home or self-care (01) ==
LOC: D.ER 10:18 → D.SDCHOLD 12:46 → OBSVTIME 12:46 → D.M2 12:46
PROVIDERS: Emergency Medicine; ADMIT Internal Medicine Interventional Cardiology
DX: I25.110 Atherosclerotic heart disease of native coronary artery with unstable angina pectoris (principal); Z95.1 Presence of aortocoronary bypass graft; I10 Essential (primary) hypertension; E78.5 Hyperlipidemia, unspecified
CPT/HCPCS: 92937; 93459; C9600 ×2